=== PATIENT | female | born 1975 | race Caucasian/White ===

== ENCOUNTER 2017-07-15 17:18 | Inpatient (IN) | payer MEDICAID, OTHER ==
[2017-07-15 17:24] VITALS: O2SAT 99
--- NOTE | 2017-07-15 17:34 | C.PDOC ---
History Of Present Illness 41 year old female presents to the ER as a transfer from [facility] for psych admission for depression, suicidal ideation, and alcoholism. Denies physical complaints at this time. Time Seen by Provider: 07/15/17 17:33 Chief Complaint (Nursing): Psychiatric Evaluation History Per: Patient History/Exam Limitations: no limitations Onset/Duration Of Symptoms: Days Current Symptoms Are (Timing): Still Present Involuntary Hold By: None Recent travel outside of the [place]: No Past Medical History Reviewed: Historical Data, Nursing Documentation, Vital Signs Vital Signs: Last Vital Signs Temp 98.5 F 07/15/17 17:23 Pulse 82 07/15/17 17:23 Resp 18 07/15/17 18:33 BP 139/86 07/15/17 17:23 Pulse Ox 99 07/15/17 17:34 - Medical History PMH: Anxiety, Bipolar Disorder, Depression Family History: States: Unknown Family Hx - Social History Hx Alcohol Use: Yes Hx Substance Use: No - Immunization History Hx Tetanus Toxoid Vaccination: No Hx Influenza Vaccination: No Hx Pneumococcal Vaccination: No Review Of Systems Constitutional: Negative for: Fever, Chills Gastrointestinal: Negative for: Nausea, Vomiting, Diarrhea Psych: Positive for: Depression, Suicidal ideation Physical Exam - Physical Exam Appears: Non-toxic, No Acute Distress, Other (Obese white female) Skin: Normal Color, Warm, Dry Head: Atraumatic, Normacephalic Eye(s): bilateral: Normal Inspection Oral Mucosa: Moist Chest: Symmetrical, No Tenderness Cardiovascular: Rhythm Regular Respiratory: Normal Breath Sounds, No Rales, No Rhonchi, No Wheezing Gastrointestinal/Abdominal: Soft, No Tenderness Neurological/Psych: Oriented x3, Normal Speech ED Course And Treatment O2 Sat by Pulse Oximetry: 99 (Room air) Pulse Ox Interpretation: Normal Medical Decision Making Medical Decision Making: pre-screened by this MD for inpt psych for depression, alcohol abuse. Disposition Doctor Will See Patient In The: Hospital Counseled Patient/Family Regarding: Studies Performed, Diagnosis - Disposition Disposition: HOSPITALIZED Disposition Time: 17:34 Condition: GOOD - Clinical Impression Clinical Impression: Moderate major depression, single episode - Scribe Statement The provider has reviewed the documentation as recorded by the Scribnakul Huddleston All medical record entries made by the Scribe were at my direction and personally dictated by me. I have reviewed the chart and agree that the record accurately reflects my personal performance of the history, physical exam, medical decision making, and the department course for this patient. I have also personally directed, reviewed, and agree with the discharge instructions and disposition.
--- NOTE | 2017-07-15 18:30 | PCM.BM ---
<ShawandaDana - Last Filed: 07/15/17 18:28> Treatment Plan Problems - Problems identified on initial assessmt Depression Date Initiated: 07/15/17 Time Initiated: 18:29 Assessment reference: NA Status: Active Comment: Hx of ETOH abuse/ level 301 Treatment assets and liabiliti Patient Assests: adapts well, cooperative, cognitively intact Patient Liabilities: substance abuse - Milieu Protocol Maintain good personal hygiene: daily Encourage regular showers, daily Remind patient to perform daily oral care Conduct patient checks and document Observation sheet: Q15 minutes Maintain personal safety: every shift Educate patient to report safety concerns to staff, every shift Monitor environment for contraband/sharps Medication safety: Monitor for expected outcome, potential side effects: every shift, Assess barriers to learning: every shift, Assess readiness for medication education: every shift <Pearl Ibarra - Last Filed: 07/16/17 10:52> Family Contact Family involvement: Famliy/SO not involved - Goals for Treatment Patient goals for treatment: "I need an outpatient program." Discharge/Continuing Care - Education Needs Education Needs: Patient Medication, Patient Coping Skills - Discharge Discharge Criteria: Tolerates medication w/o severe side effects, Reduction of target symptoms Discharge to:: Home - Treatment Team Participation Discussed with Family/SO: No Was Patient/Family/SO present at Treatment Team Meeting: Yes <DenverOctavio - Last Filed: 07/16/17 10:57> - Diagnosis (1) Major depressive disorder, recurrent severe without psychotic features Status: Acute Interventions: 07/16/17 10:56 * Assess/adjust medications daily and /or as needed * See patient on an individual basis 7x/week to assess symptoms of depression * Monitor for side effects & effectiveness of medications * (2) Alcohol use disorder, severe, dependence Status: Acute Interventions: 07/16/17 10:57 * Assess 7x/week regarding severity of withdrawal * Educate regarding risks, benefits, side effects and alternatives of medications * Use Motivational Interviewing for abstinence * Use CBT for relapse prevention * Medication management for withdrawal symptoms * Encourage medication assisted treatment *
[2017-07-15] MEDS ORDERED: Aluminum Hydroxide/Magnesium Hydroxide Susp (30 mL) PO PRN (18:50)
[2017-07-16] MEDS: Multiple Vitamins Tab PO SCH (09:47)
--- NOTE | 2017-07-16 10:55 | PCM.PSYCH ---
Initial Psychiatric Evaluation - Initial Psychiatric Evaluation Type of Admission: Voluntary Legal Status: Capacity Chief Complaint (in patient's own words): I was feeling depressed and suicidal.' History of Present Illness and Precipitating Events: Patient is a 41 year old female who was transferred from [place]. She is with two children who live with their father. 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 Recently her depression and anxiety is brought on by stress at work. She feels hopelessness and worthlessness. She states she sometimes has thoughts of hurting herself but has never attempted suicide. She also reports of poor sleep and poor appetite. In 2016 she was hospitalized for a general medical issue, during this time she asked to speak with a psychiatrist about her untreated depression. Following this discharge she had regular follow up with a psychiatrist at [facility] until January when the program shut down. Following there program termination she has not seen a psychiatrist. Patient states she has a history of alcohol use. Patient relapsed during the holidays and states that time of year is a trigger for her. She stats she drinks 1 to 2 pints of vodka daily. Her last drink was yesterday. At this time she is having shakes and anxiety. She had one alcohol related seizure in 2016. Patient denies drugs or tobacco products. Plan following discharge is to enter an IOP. She denies any AVH or any paranoia. PMH:HTN Past psych hx: depression Family psych hx: denies Current Medications: Active Medications Generic Name Dose Route Start Last Admin Trade Name Freq PRN Reason Stop Dose Admin Al Hydrox/Mg Hydrox/Simethicone 30 ml 07/15/17 18:50 Maalox 30 Ml PO TID PRN Indigestion / Heartburn Bupropion HCl 75 mg 07/16/17 11:00 Wellbutrin PO DAILY SELWYN Chlordiazepoxide 25 mg 07/15/17 18:50 07/15/17 19:37 Librium PO 25 mg Q4H PRN Administration Alcohol Withdrawal Clonidine HCl 0.1 mg 07/15/17 18:50 Catapres PO Q8 PRN COWS Score More or Equal to 5 Folic Acid 1 mg 07/16/17 10:00 07/16/17 09:47 Folic Acid PO 1 mg DAILY SELWYN Administration Gabapentin 100 mg 07/16/17 10:07/16/17 09:47 Neurontin PO 100 mg TID SELWYN Administration Hydroxyzine HCl 25 mg 07/15/17 18:51 Atarax PO Q6 PRN Anxiety Loperamide HCl 2 mg 07/15/17 18:50 Imodium PO Q8 PRN Diarrhea Multivitamins 1 tab 07/16/17 10:00 07/16/17 09:47 Hexavitamin PO 1 tab DAILY SELWYN Administration Ondansetron HCl 4 mg 07/15/17 18:50 Zofran Tab PO Q8 PRN Nausea/Vomiting Pneumococcal Polyvalent Vaccine 0.5 ml 07/17/17 20:34 Pneumovax 23 Vaccine IM 07/17/17 20:35 .ONCE ONE Thiamine HCl 100 mg 07/16/17 10:00 07/16/17 09:47 Vitamin B1 Tab PO 100 mg DAILY SELWYN Administration Trazodone HCl 50 mg 07/15/17 18:50 Desyrel PO HS PRN Insomnia Past Psychiatric History - Past Psychiatric History Previous Treatment History: Inpatient Pertinent Medical Hx (Current Medical&Sleep Prob, Allergies): Allergies Allergy/AdvReac Type Severity Reaction Status Date / Time latex Allergy RASH Verified 07/15/17 17:29 Topamax 07/15/17 Wellbutrin 07/15/17 Review of Systems - Review of Systems All systems: reviewed and no additional remarkable complaints except - Neurological Neurological: Tremor - Psychiatric Psychiatric: Anxiety, Depression, Irritability, Suicidal Ideation Mental Status Examination - Personal Presentation Personal Presentation: Looks stated age - Affect Affect: Constricted, Depressed - Motor Activity Motor Activity: Calm - Reliability in Providing Information Reliability in Providing Information: Fair - Speech Speech: Organized - Mood Mood: Depressed, Anxious - Formal Thought Process Formal Thought Process: No Impairment - Obsessions/Compulsions Obsessions: No Compulsions: No - Cognitive Functions Orientation: Person, Place, Situation, Time Sensorium: Alert Attention/Concentration: Attentive Abstract Thinking: [place] Estimate of Intelligence: Below average Judgement: Imparied, as evidence by: Poor judgement, Imparied, as evidence by: Lack of insight into illness - Risk Risk: Suicidal, Withdrawal, Diminished functioning - Limitations Limitations: Living alone DSM 5 DX - DSM 5 DSM 5 Diagnosis: Major depressive disorder severe without psychotic features Alcohol use disorder severe Alcohol withdrawal - Recommended/Plan of Treatment Treatment Recommendations and Plan of Treatment: Major depressive disorder severe without psychotic features CBT Psychoeducation Supportive therapy, group therapy, individual therapy Bupropion 75 mg by mouth daily Neurontin 100 mg PO TID Trazodone 50 mg by mouth daily at bedtime Alcohol use disorder severe CBT Psychoeducation Supportive therapy, individual therapy Use [place] for abstinence Alcohol withdrawal uncomplicated CBT Psychoeducation Supportive therapy, individual therapy Librium when necessary Librium taper Folic acid/thiamine/multivitamin Seizure Disorder Continue prescribed medications (Topamax 50 mg) HTN Monitor s/s - Smoking Cessation Smoking Cessation Initiated: No
[2017-07-17 06:21] VITALS: RESP 20
[2017-07-17] MEDS: Multiple Vitamins Tab PO SCH (09:29)
--- NOTE | 2017-07-17 11:49 | PCM.PYCHPN ---
Psychiatric Progress Note - Psychiatric Progress Note Patient seen today, length of contact: 16mins Patient Chief Complaint: " I don't think I need the librium" Problems Identified/Issues Discussed: The pt is seen, chart reviewed, case discussed with staff. Patient states she feels great. She is asking to stop the librium because it makes her sleepy. Reassured the necessity of the medication for her detox. The pt is compliant with medications and reports no side-effects. Symptoms are improving but needs more time to stabilize. After care discussed, support and psychoeducation given. Medication Change: Yes Medical Record Reviewed: Yes Mental Status Examination - Cognitive Function Orientation: Person, Place, Situation, Time Memory: Intact Attention: WNL Concentration: WNL Association: WNL Fund of Knowledge: WNL - Mood Mood: Neutral - Affect Affect: Constricted - Speech Speech: Appropriate - Formal Thought Process Formal Thought Process: No Impairment - Suicidal Ideation Suicidal Ideation: No - Homicidal Ideation Homicidal Ideation: No Goal/Treatment Plan - Goal/Treatment Plan Need for Continued Stay: Discharge may exacerbated symptoms, Severe functional impairment Progress Toward Problem(s) and Goals/Treatment Plan: Major depressive disorder severe without psychotic features CBT Psychoeducation Supportive therapy, group therapy, individual therapy Bupropion 75 mg by mouth daily changed to XL 150 tomorrow Trazodone 50 mg by mouth daily at bedtime Alcohol use disorder severe CBT Psychoeducation Supportive therapy, individual therapy Use [place] for abstinence Alcohol withdrawal uncomplicated CBT Psychoeducation Supportive therapy, individual therapy Librium when necessary Librium taper Folic acid/thiamine/multivitamin Seizure Disorder Continue prescribed medications (Topamax 50 mg) HTN Monitor s/s
[2017-07-17] MEDS ORDERED: Pneumococcal 23-Valent Vaccine IM ONE (20:34)
[2017-07-18 06:30] VITALS: BP 104/71; PULSE 74; TEMP 98.3
[2017-07-18] MEDS: Multiple Vitamins Tab PO SCH (09:20)
[2017-07-18] MEDS ORDERED: buPROPion 150 mg/24 Hours XL Tab PO SCH (10:00)
--- NOTE | 2017-07-18 10:32 | PCM.PYCHDC ---
Mental Status Examination - Mental Status Examination Orientation: Person, Place, Situation, Time Memory: Intact Mood: Neutral Affect: Constricted Speech: Soft Attention: WNL Concentration: WNL Association: WNL Fund of Knowledge: WNL Formal Thought Process: No Impairment Description of patient's judgement and insight: good, fair Psychotic Thoughts and Behaviors: denies any AVH Suicidal Ideation: No Current Homicidal Ideation?: No Discharge Summary - Discharge Note Reason for Hospitalization: Patient is a 41 year old female who was transferred from [place]. She is with two children who live with their father. 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 Recently her depression and anxiety is brought on by stress at work. She feels hopelessness and worthlessness. She states she sometimes has thoughts of hurting herself but has never attempted suicide. She also reports of poor sleep and poor appetite. In 2016 she was hospitalized for a general medical issue, during this time she asked to speak with a psychiatrist about her untreated depression. Following this discharge she had regular follow up with a psychiatrist at [facility] until January when the program shut down. Following there program termination she has not seen a psychiatrist. Patient states she has a history of alcohol use. Patient relapsed during the holidays and states that time of year is a trigger for her. She stats she drinks 1 to 2 pints of vodka daily. Her last drink was yesterday. At this time she is having shakes and anxiety. She had one alcohol related seizure in 2016. Patient denies drugs or tobacco products. Plan following discharge is to enter an IOP. She denies any AVH or any paranoia. Consultations:: List each consultation separately and include: 1. Reason for request. 2. Findings. 3. Follow-up Summary of Hospital Course include:: 1. Description of specific treatment plan utilized for patients during their course of treatmen. 2. Summarize the time- course for resolution of acute symptoms and/or regressed behaviors. 3. Describe issues identified and worked on during hospitalization. 4. Describe medication utilized. 5. Describe medical problems identified and treated. 6. Reassessment of suicide risk Summary of Hospital Course: During the course of her stay, patient (pt) started progressively improving and she no longer remained anxious, depressed and suicidal. Her mood was getting better and she started attending groups and meetings and started socializing. The doses of her medications were maximized and patient denied any feelings of hopelessness, helplessness, and worthlessness, denied any problem with the sleep or appetite, denied suicidal ideation or homicidal ideation. Pt denied any auditory or visual hallucinations. Patient reported improvement in her mood and tolerated these medications very well and denied any side effects. Pt is to follow-up with private psychiatrist, on 07/30/17 at 4 p.m. Pt is also to follow-up with [facility] in [place] for IOP program. - Diagnosis (1) Major depressive disorder, recurrent severe without psychotic features Status: Acute (2) Alcohol use disorder, severe, dependence Status: Acute - Final Diagnosis (DSM 5) Condition upon Discharge: GOOD DSM 5: Major depressive disorder severe without psychotic features Alcohol use disorder severe Alcohol withdrawal uncomplicated Disposition: HOME/ ROUTINE Follow-up Treatment Plan: Education: Pt was educated and counseled about the risks and benefits of taking and not taking medications. Pt was educated and counseled about the risks of drinking and abusing drugs. Pt was educated and counseled to go to the ER or call 911 if pt develop suicidal ideation or homicidal ideation, worsening of symptoms or severe side effects of the meds. Prescriptions/Medication Reconciliation: buPROPion XL [Wellbutrin XL] 150 mg PO DAILY #30 t24 Gabapentin [Neurontin] 100 mg PO BID 14 Days cap Topiramate [Topamax] 50 mg PO DAILY #30 tab traZODone [Desyrel] 50 mg PO HS PRN #30 tab PRN Reason: Insomnia
== END 2017-07-18 11:45 | disposition home or self-care (01) | DRG 430 ==
LOC: C.ER 17:18 → C.5E 17:34
PROVIDERS: ADMIT Psychiatry & Neurology Psychiatry; ATTEND Psychiatry & Neurology Psychiatry
PROC: HZ2ZZZZ Detoxification Services for Substance Abuse Treatment (ICD-10-PCS; principal; 2017-07-15)
DX: F33.2 Major depressive disorder, recurrent severe without psychotic features (principal); G40.909 Epilepsy, unspecified, not intractable, without status epilepticus; F10.239 Alcohol dependence with withdrawal, unspecified; F41.9 Anxiety disorder, unspecified; I10 Essential (primary) hypertension

== ENCOUNTER 2017-09-23 13:01 | Inpatient (IN) | payer MEDICAID, OTHER ==
[2017-09-23 14:17] LABS: BASO % 0.6 % (0.0-2.0); EOS % 0.8 % (0.0-4.0); HEMOGLOBIN 14.3 g/dL (11.0-16.0); LYMPH # 1.6 K/uL (1.0-4.3); LYMPH % 28.4 % (20.0-40.0); MEAN CELL VOLUME 91.7 fL (81.0-99.0); MEAN CORPUSCULAR HEMOGLOBIN 32.2 pg (27.0-31.0); MEAN CORPUSCULAR HGB CONC 35.2 g/dL (33.0-37.0); MONO # 0.3 K/uL (0.0-0.8); NEUT # 3.7 K/uL (1.8-7.0); NEUT % 65.2 % (50.0-75.0); RBC 4.43 Mil/uL (3.80-5.20); WHITE BLOOD COUNT 5.7 K/uL (4.8-10.8)
[2017-09-23 14:22] LABS: SQUAMOUS EPITHIAL < 1 /hpf (0-5); URINE BILIRUBIN NEGATIVE (NEGATIVE); URINE BLOOD 1+ (NEGATIVE); URINE CLARITY Clear (Clear); URINE COLOR Colorless (YELLOW); URINE GLUCOSE (UA) NORMAL (Normal); URINE LEUKOCYTE ESTERASE NEG Leu/uL (Negative); URINE PROTEIN NEGATIVE (NEGATIVE); URINE UROBILINOGEN NORMAL mg/dL (0.2-1.0)
[2017-09-23 14:38] LABS: ALB/GLOB RATIO 1.3 (1.0-2.1); ALBUMIN 4.6 g/dL (3.5-5.0); ALT/SGPT 41 U/L (9-52); AST/SGOT 57 U/L (14-36); BLOOD UREA NITROGEN 11 mg/dL (7-17); CALCIUM 9.2 mg/dl (8.6-10.4); GFR AFRICAN-AMERICAN > 60; GFR NON-AFRICAN AMERICAN > 60; HCG,QUALITATIVE URINE NEGATIVE (NEGATIVE)
[2017-09-23 14:56] LABS: BARBITURATES, UR NEGATIVE (NEGATIVE); OPIATES, UR NEGATIVE (NEGATIVE); PHENCYCLIDINE, UR NEGATIVE (NEGATIVE)
[2017-09-23 14:57] LABS: BENZODIAZEPINES, UR POSITIVE (NEGATIVE)
--- NOTE | 2017-09-23 15:37 | C.PDOC ---
History Of Present Illness 42 year old female presents to the ED after being referred by Dr. Goff for evaluation of alcoholism and depression. Patient denies suicidal/homicidal ideation and has no other complaints at this time. Time Seen by Provider: 09/23/17 14:04 Chief Complaint (Nursing): Substance Abuse History Per: Patient History/Exam Limitations: no limitations Current Symptoms Are (Timing): Still Present Modifying Factor(s): Alcohol Associated Symptoms: Depression. denies: Suicidal Thoughts, Suicidal Plan Additional History Per: Patient Past Medical History Reviewed: Historical Data, Nursing Documentation, Vital Signs Vital Signs: Last Vital Signs Temp 97.5 F L 09/23/17 16:08 Pulse 68 09/23/17 16:08 Resp 17 09/23/17 19:34 BP 116/76 09/23/17 16:08 Pulse Ox 96 09/23/17 19:00 - Medical History PMH: Anxiety, Bipolar Disorder, Depression, HTN, Seizures Denies: Diabetes, Hepatitis, HIV, Sexually Transmitted Disease Surgical History: No Surg Hx - [facility] DETOXIFICATION SERVICES FOR SUBSTANCE ABUSE TREATMENT (07/15/17) Family History: States: Unknown Family Hx - Social History Hx Alcohol Use: Yes Hx Substance Use: Yes - Immunization History Hx Tetanus Toxoid Vaccination: No Hx Influenza Vaccination: No Hx Pneumococcal Vaccination: No Review Of Systems Psych: Positive for: Depression, Other (alcoholism ). Negative for: Suicidal ideation Physical Exam - Physical Exam Appears: Non-toxic, No Acute Distress Skin: Normal Color, Warm, Dry Head: Atraumatic, Normacephalic Eye(s): bilateral: Normal Inspection Oral Mucosa: Moist, Other (alcohol on breath ) Neck: Supple Chest: Symmetrical, No Deformity, No Tenderness Cardiovascular: Rhythm Regular, No Murmur Respiratory: Normal Breath Sounds, No Rales, No Rhonchi, No Wheezing Extremity: Normal ROM, Capillary Refill (less than 2 seconds ) Neurological/Psych: Oriented x3, Normal Speech, Normal Cognition ED Course And Treatment - Laboratory Results Result Diagrams: 09/23/17 14:10 09/23/17 14:10 Lab Interpretation: Abnormal (tox + benzo, + etoh 172 H) O2 Sat by Pulse Oximetry: 96 (on RA) Pulse Ox Interpretation: Normal Progress Note: Bloodwork and UA ordered and reviewed. Reevaluation Time: 15:36 Reassessment Condition: Improved - Physician Consult Information Outcome Of Conversation: 1530: d/w Crisis, ok to admit to psych Disposition Doctor Will See Patient In The: Office Counseled Patient/Family Regarding: Studies Performed, Diagnosis - Disposition Disposition: HOSPITALIZED Disposition Time: 15:36 Condition: GOOD - Clinical Impression Clinical Impression: Alcohol use disorder, severe, dependence, Major depressive disorder, recurrent severe without psychotic features - Scribe Statement The provider has reviewed the documentation as recorded by the Scribe (Trinity Cooley) Provider Attestation: All medical record entries made by the Scribe were at my direction and personally dictated by me. I have reviewed the chart and agree that the record accurately reflects my personal performance of the history, physical exam, medical decision making, and the department course for this patient. I have also personally directed, reviewed, and agree with the discharge instructions and disposition.
[2017-09-23] MEDS: Multiple Vitamins Tab PO SCH (17:41)
--- NOTE | 2017-09-23 18:29 | PCM.BM ---
<Coco Marcum - Last Filed: 09/23/17 18:26> Treatment Plan Problems - Problems identified on initial assessmt Depression Date Initiated: 09/23/17 Time Initiated: 18:27 Assessment reference: NA Status: Active Substance Abuse Date Initiated: 09/23/17 Time Initiated: 18:27 Assessment reference: NA Status: Active Treatment assets and liabiliti Patient Assests: adapts well, cooperative, self-reliant, ADL independent, physically healthy, negotiates basic needs, cognitively intact Patient Liabilities: substance abuse (EToh, Benzo) - Milieu Protocol Maintain good personal hygiene: daily Encourage regular showers, daily Remind patient to perform daily oral care, daily Assist patient to perform ADL's (Self) Conduct patient checks and document Observation sheet: Q15 minutes (Safety) Maintain personal safety: every shift Educate patient to report safety concerns to staff, every shift Monitor environment for contraband/sharps Medication safety: Monitor for expected outcome, potential side effects: every shift, Assess barriers to learning: every shift, Assess readiness for medication education: every shift <Octavio Goff - Last Filed: 09/24/17 11:13> - Diagnosis (1) Major depressive disorder, recurrent severe without psychotic features Status: Acute Interventions: 09/24/17 11:13 * Assess/adjust medications daily and /or as needed * See patient on an individual basis 7x/week to assess symptoms of depression * Monitor for side effects & effectiveness of medications * (2) Alcohol use disorder, severe, dependence Status: Acute Interventions: 09/24/17 11:14 * Assess 7x/week regarding severity of withdrawal * Educate regarding risks, benefits, side effects and alternatives of medications * Use Motivational Interviewing for abstinence * Use CBT for relapse prevention * Medication management for withdrawal symptoms * Encourage medication assisted treatment * <Semea Valencia - Last Filed: 09/24/17 17:53> Family Contact Family involvement: Patient does not wish Family/SO involvement Family contact: Patient declines to allow family contact at present - Goals for Treatment Patient goals for treatment: " I want return to my private psychiatrist and need individual counseling." Discharge/Continuing Care - Education Needs Education Needs: Patient Medication, Patient Diagnosis/Disease Process, Patient Coping Skills, Patient Community resources, Patient Aftercare Safety Plan - Discharge Discharge Criteria: Ability to care for self, No longer exhibiting s/s of withdrawal, Reduction of target symptoms Discharge to:: Home - Treatment Team Participation Discussed with Family/SO: No Was Patient/Family/SO present at Treatment Team Meeting: Yes
[2017-09-24] MEDS: Multiple Vitamins Tab PO SCH (10:03)
[2017-09-24] MEDS: buPROPion 150 mg/24 Hours XL Tab PO SCH (10:04)
--- NOTE | 2017-09-24 11:12 | PCM.PSYCH ---
Initial Psychiatric Evaluation - Initial Psychiatric Evaluation Type of Admission: Voluntary Legal Status: Capacity Chief Complaint (in patient's own words): I was being depressed and suicidal.' History of Present Illness and Precipitating Events: Patient is a 42 year old female was admitted because of depressed mood and suicidal ideation. The television writer is familiar with this patient. Patient was just discharged from [facility] almost 3 months ago. As per the patient soon after discharge from the hospital, she started following up with the psychiatrist and started working full-time. However as per the patient, she began drinking heavily again after being sober for two months. Yesterday she consumed almost 1 and 2 pints of alcohol became increasingly depressed and developed suicidal ideation, so she came to the hospital to get help. She reports financial stresses, and relationship issues and stress at work. She reports depressed mood, feelings of helplessness, poor sleep and poor appetite. She remained tearful during the interview. She also reported withdrawal symptoms drinking including nausea, anxiety, sweating, shakes and headaches. Patient has a history of seizure disorder for which she is prescribed Topamax. However patient reports she has been non-compliant with all her meds since she resumed drinking. Patient denies HI. She denies any auditory or visual hallucinations or any paranoia. Patient denies any other substance abuse. PMH h/o Seizure, HTN Current Medications: Active Medications Generic Name Dose Route Start Last Admin Trade Name Freq PRN Reason Stop Dose Admin Bupropion HCl 150 mg 09/24/17 10:00 09/24/17 10:04 Wellbutrin Xl PO 150 mg DAILY SELWYN Administration Chlordiazepoxide 25 mg 09/23/17 18:00 09/24/17 06:03 Librium PO 09/28/17 17:59 25 mg Q6 SELWYN Administration Taper Chlordiazepoxide 25 mg 09/23/17 16:08 09/24/17 10:03 Librium PO 25 mg Q4H PRN Administration Alcohol Withdrawal Clonidine HCl 0.1 mg 09/23/17 16:08 Catapres PO Q4H PRN Symptoms of alcohol withdrawl Folic Acid 1 mg 09/23/17 16:15 09/24/17 10:04 Folic Acid PO 1 mg DAILY SELWYN Administration Gabapentin 100 mg 09/23/17 18:00 09/24/17 10:04 Neurontin PO 100 mg BID SELWYN Administration Multivitamins 1 tab 09/23/17 16:15 09/24/17 10:03 Hexavitamin PO 1 tab DAILY SELWYN Administration Pneumococcal Polyvalent Vaccine 0.5 ml 09/26/17 10:00 Pneumovax 23 Vaccine IM 09/26/17 10:01 .ONCE ONE Thiamine HCl 100 mg 09/23/17 16:15 09/24/17 10:04 Vitamin B1 Tab PO 100 mg DAILY SELWYN Administration Topiramate 50 mg 09/24/17 10:00 09/24/17 10:11 Topamax PO 50 mg DAILY SELWYN Administration Trazodone HCl 50 mg 09/23/17 16:07 Desyrel PO HS PRN Insomnia Past Psychiatric History - Past Psychiatric History Previous Treatment History: Inpatient Pertinent Medical Hx (Current Medical&Sleep Prob, Allergies): Allergies Allergy/AdvReac Type Severity Reaction Status Date / Time latex Allergy RASH Verified 09/23/17 13:31 Topamax 07/15/17 Wellbutrin 07/15/17 Gabapentin [Neurontin] 100 mg PO BID 14 Days cap 07/18/17 Topiramate [Topamax] 50 mg PO DAILY #30 tab 07/18/17 buPROPion XL [Wellbutrin XL] 150 mg PO DAILY #30 t24 07/18/17 traZODone [Desyrel] 50 mg PO HS PRN #30 tab 07/18/17 Review of Systems - Review of Systems All systems: reviewed and no additional remarkable complaints except - Psychiatric Psychiatric: Anxiety, Irritability, Suicidal Ideation Mental Status Examination - Personal Presentation Personal Presentation: Looks stated age - Affect Affect: Constricted, Depressed - Motor Activity Motor Activity: Calm - Reliability in Providing Information Reliability in Providing Information: Fair - Speech Speech: Organized - Mood Mood: Depressed, Anxious - Formal Thought Process Formal Thought Process: No Impairment - Obsessions/Compulsions Obsessions: No Compulsions: No - Cognitive Functions Orientation: Person, Place, Situation, Time Sensorium: Alert Attention/Concentration: Attentive Abstract Thinking: [place] Estimate of Intelligence: Below average Judgement: Imparied, as evidence by: Poor judgement, Imparied, as evidence by: Lack of insight into illness - Risk Risk: Suicidal, Diminished functioning - Strength & Assets Inventory Strength & Assets Inventory: Intelligence - Limitations Limitations: Living alone DSM 5 DX - DSM 5 DSM 5 Diagnosis: Major depressive disorder recurrent severe without psychotic features Alcohol use disorder severe Alcohol withdrawal uncomplicated - Recommended/Plan of Treatment Treatment Recommendations and Plan of Treatment: Major depressive disorder recurrent severe without psychotic features CBT Psychoeducation Supportive therapy, group therapy, individual therapy Trazodone 50 mg by mouth daily at bedtime Wellbutrin 150 mg PO Daily Gabapentin 100 mg PO TID Alcohol use disorder severe CBT Psychoeducation Supportive therapy, individual therapy Use [place] for abstinence Alcohol withdrawal uncomplicated CBT Psychoeducation Supportive therapy, individual therapy Librium when necessary Start Librium taper Start folic acid/thiamine/multivitamin H/O Seizures Continue Topamax 50 mg PO dialy Monitor signs and symptoms H/O HTN Continue meds Monitor signs and symptoms - Smoking Cessation Smoking Cessation Initiated: No
[2017-09-25] MEDS: buPROPion 150 mg/24 Hours XL Tab PO SCH (10:00)
[2017-09-25] MEDS: Multiple Vitamins Tab PO SCH (10:00)
--- NOTE | 2017-09-25 21:53 | PCM.PYCHPN ---
Psychiatric Progress Note - Psychiatric Progress Note Patient seen today, length of contact: 15 min Patient Chief Complaint: I was still feeling being depressed.' Problems Identified/Issues Discussed: Patient seen and evaluated, chart reviewed and discussed with the nurse. She still reports depressed mood and feelings of hopelessness and helplessness. Patient remained isolated, confined and withdrawn. She reports withdrawal symptoms including nausea, headaches, cramps and sweating. Patient is compliant with medications and denies any side effects. Symptoms are improving but need more time to stabilize. Support and psychoeducation given. Medication Change: Yes (librium taper) Medical Record Reviewed: Yes Mental Status Examination - Cognitive Function Orientation: Person, Place, Situation, Time Memory: Intact Attention: WNL Concentration: Poor Association: WNL Fund of Knowledge: Poor - Mood Mood: Depressed, Anxious - Affect Affect: Constricted, Depressed - Speech Speech: Soft - Formal Thought Process Formal Thought Process: No Impairment - Suicidal Ideation Suicidal Ideation: No - Homicidal Ideation Homicidal Ideation: No Goal/Treatment Plan - Goal/Treatment Plan Need for Continued Stay: Severe depression anxiety, Severe functional impairment Progress Toward Problem(s) and Goals/Treatment Plan: Major depressive disorder recurrent severe without psychotic features CBT Psychoeducation Supportive therapy, group therapy, individual therapy Trazodone 50 mg by mouth daily at bedtime Wellbutrin 150 mg PO Daily Gabapentin 100 mg PO TID Alcohol use disorder severe CBT Psychoeducation Supportive therapy, individual therapy Use [place] for abstinence Alcohol withdrawal uncomplicated CBT Psychoeducation Supportive therapy, individual therapy Librium when necessary Start Librium taper Start folic acid/thiamine/multivitamin H/O Seizures Continue Topamax 50 mg PO dialy Monitor signs and symptoms H/O HTN Continue meds Monitor signs and symptoms - Smoking Cessation Smoking Cessation Initiated: No
[2017-09-26] MEDS ORDERED: Pneumococcal 23-Valent Vaccine IM ONE (10:00)
[2017-09-26] MEDS: buPROPion 150 mg/24 Hours XL Tab PO SCH (10:04)
[2017-09-26] MEDS: Multiple Vitamins Tab PO SCH (10:04)
--- NOTE | 2017-09-26 23:33 | PCM.PYCHPN ---
Psychiatric Progress Note - Psychiatric Progress Note Patient seen today, length of contact: 15 min Patient Chief Complaint: I was still feeling depressed.' Problems Identified/Issues Discussed: Patient seen and evaluated, chart reviewed and discussed with the nurse. She still reports depressed mood and feelings of hopelessness. Patient remained isolated, confined and withdrawn. She reports withdrawal symptoms including nausea, headaches, cramps and sweating. Patient is compliant with medications and denies any side effects. Symptoms are improving but need more time to stabilize. Support and psychoeducation given. Medication Change: Yes (librium taper, increase neurontin) Medical Record Reviewed: Yes Mental Status Examination - Cognitive Function Orientation: Person, Place, Situation, Time Memory: Intact Attention: WNL Concentration: Poor Association: WNL Fund of Knowledge: Poor - Mood Mood: Depressed, Anxious - Affect Affect: Constricted, Depressed - Speech Speech: Soft - Formal Thought Process Formal Thought Process: No Impairment - Suicidal Ideation Suicidal Ideation: No - Homicidal Ideation Homicidal Ideation: No Goal/Treatment Plan - Goal/Treatment Plan Need for Continued Stay: Severe depression anxiety, Severe functional impairment Progress Toward Problem(s) and Goals/Treatment Plan: Major depressive disorder recurrent severe without psychotic features CBT Psychoeducation Supportive therapy, group therapy, individual therapy Trazodone 50 mg by mouth daily at bedtime Wellbutrin 150 mg PO Daily Gabapentin 300 mg PO TID Alcohol use disorder severe CBT Psychoeducation Supportive therapy, individual therapy Use [place] for abstinence Alcohol withdrawal uncomplicated CBT Psychoeducation Supportive therapy, individual therapy Librium when necessary Librium taper Folic acid/thiamine/multivitamin H/O Seizures Continue Topamax 50 mg PO dialy Monitor signs and symptoms H/O HTN Continue meds Monitor signs and symptoms - Smoking Cessation Smoking Cessation Initiated: No
[2017-09-27 06:25] VITALS: O2SAT 100
[2017-09-27] MEDS: buPROPion 150 mg/24 Hours XL Tab PO SCH (09:05)
[2017-09-27] MEDS: Multiple Vitamins Tab PO SCH (09:05)
--- NOTE | 2017-09-27 16:34 | PCM.PYCHPN ---
Psychiatric Progress Note - Psychiatric Progress Note Patient seen today, length of contact: 15 min Patient Chief Complaint: I'm feeling better. Problems Identified/Issues Discussed: Patient seen, chart reviewed, case discussed with the staff. Issues related to illness and treatment were discussed with the patient and staff. Reported compliant with treatment with no adverse affects. Tolerating treatment very well. Patient reported feeling better. Patient is improving with treatment but needs more time. Aftercare discussed with the patient. At the time of evaluation, patient was awake alert oriented 3, no delusions, no auditory visual hallucinations, no suicidal ideations or homicidal ideations. Medical Problems: Hypertension Seiter disorder Diagnostic Results: Reviewed DSM 5 Symptoms Update: Improving with treatment Medication Change: No Medical Record Reviewed: Yes Mental Status Examination - Cognitive Function Orientation: Person, Place, Situation, Time Memory: Intact Attention: WNL Concentration: WNL Association: WNL Fund of Knowledge: WN Decription of patient's judgement and insights: Fair - Mood Mood: Depressed - Affect Affect: Depressed - Speech Speech: Soft - Formal Thought Process Formal Thought Process: No Impairment Psychotic Thoughts and Behaviors: None - Suicidal Ideation Suicidal Ideation: No - Homicidal Ideation Homicidal Ideation: No Goal/Treatment Plan - Goal/Treatment Plan Need for Continued Stay: Remain at risks for inpatient hospitalization, Discharge may exacerbated symptoms, Severe functional impairment Progress Toward Problem(s) and Goals/Treatment Plan: Patient education Supportive therapy Continue treatment as before Patient will go to [facility] for follow-up care after discharge from the hospital. Estimated Date of D/C: 09/30/17 - Smoking Cessation Smoking Cessation Initiated: No
[2017-09-28] MEDS: buPROPion 150 mg/24 Hours XL Tab PO SCH (09:24)
[2017-09-28] MEDS: Multiple Vitamins Tab PO SCH (09:24)
--- NOTE | 2017-09-28 13:34 | PCM.PYCHPN ---
Psychiatric Progress Note - Psychiatric Progress Note Patient seen today, length of contact: 15 min Patient Chief Complaint: I'm feeling better. Problems Identified/Issues Discussed: Patient seen, chart reviewed, case discussed with the staff. Issues related to illness and treatment were discussed with the patient and staff. Reported compliant with treatment with no adverse affects. Tolerating treatment very well. Patient reported feeling better. Comment cooperative and could try contact. Patient is improving with treatment but needs more time. Aftercare discussed with the patient. At the time of evaluation, patient was awake alert oriented 3, no delusions, no auditory visual hallucinations, no suicidal ideations or homicidal ideations. Medical Problems: Hypertension Seizer disorder Diagnostic Results: Reviewed DSM 5 Symptoms Update: Improving with treatment. Medication Change: No Medical Record Reviewed: Yes Mental Status Examination - Cognitive Function Orientation: Person, Place, Situation, Time Memory: Intact Attention: WNL Concentration: WNL Association: WNL Fund of Knowledge: [facility] Decription of patient's judgement and insights: Fair - Mood Mood: Depressed (Much less than before) - Affect Affect: Depressed - Speech Speech: Soft - Formal Thought Process Formal Thought Process: No Impairment Psychotic Thoughts and Behaviors: None - Suicidal Ideation Suicidal Ideation: No - Homicidal Ideation Homicidal Ideation: No Goal/Treatment Plan - Goal/Treatment Plan Need for Continued Stay: Remain at risks for inpatient hospitalization, Discharge may exacerbated symptoms, Severe functional impairment Progress Toward Problem(s) and Goals/Treatment Plan: Patient education Supportive therapy Continue treatment as before Patient will go to [facility] for follow-up care after discharge from the hospital. Estimated Date of D/C: 09/30/17 - Smoking Cessation Smoking Cessation Initiated: No
[2017-09-29 05:54] VITALS: RESP 18
[2017-09-29] MEDS: Multiple Vitamins Tab PO SCH (09:55)
[2017-09-29] MEDS: buPROPion 150 mg/24 Hours XL Tab PO SCH (09:55)
--- NOTE | 2017-09-29 13:27 | PCM.PYCHPN ---
Psychiatric Progress Note - Psychiatric Progress Note Patient seen today, length of contact: 15 min Patient Chief Complaint: I was still feeling depressed.' Problems Identified/Issues Discussed: Patient seen and evaluated, chart reviewed and discussed with the nurse. She still reports depressed mood and feelings of hopelessness. Patient remained isolated, confined and withdrawn. She reports withdrawal symptoms including nausea, headaches, cramps and sweating. Patient is compliant with medications and denies any side effects. Symptoms are improving but need more time to stabilize. Support and psychoeducation given. Medication Change: No Medical Record Reviewed: Yes Mental Status Examination - Cognitive Function Orientation: Person, Place, Situation, Time Memory: Intact Attention: WNL Concentration: WNL Association: WNL Fund of Knowledge: WNL - Mood Mood: Depressed (Much less than before) - Affect Affect: Depressed - Speech Speech: Soft - Formal Thought Process Formal Thought Process: No Impairment - Suicidal Ideation Suicidal Ideation: No - Homicidal Ideation Homicidal Ideation: No Goal/Treatment Plan - Goal/Treatment Plan Need for Continued Stay: Remain at risks for inpatient hospitalization, Discharge may exacerbated symptoms, Severe functional impairment Progress Toward Problem(s) and Goals/Treatment Plan: Major depressive disorder recurrent severe without psychotic features CBT Psychoeducation Supportive therapy, group therapy, individual therapy Trazodone 50 mg by mouth daily at bedtime Wellbutrin 150 mg PO Daily Gabapentin 300 mg PO TID Alcohol use disorder severe CBT Psychoeducation Supportive therapy, individual therapy Use [place] for abstinence Alcohol withdrawal uncomplicated CBT Psychoeducation Supportive therapy, individual therapy Librium when necessary Librium taper Folic acid/thiamine/multivitamin H/O Seizures Continue Topamax 50 mg PO dialy Monitor signs and symptoms H/O HTN Continue meds Monitor signs and symptoms Estimated Date of D/C: 09/30/17
[2017-09-30 06:18] VITALS: BP 104/62; PULSE 69; TEMP 97.4
[2017-09-30] MEDS: buPROPion 150 mg/24 Hours XL Tab PO SCH (10:13)
[2017-09-30] MEDS: Multiple Vitamins Tab PO SCH (10:13)
--- NOTE | 2017-09-30 11:10 | PCM.PYCHDC ---
Mental Status Examination - Mental Status Examination Orientation: Person, Place, Situation, Time Memory: Intact Mood: Neutral Affect: Constricted Speech: Soft Attention: WNL Concentration: WNL Association: WNL Fund of Knowledge: WNL Formal Thought Process: No Impairment Description of patient's judgement and insight: good, fair Psychotic Thoughts and Behaviors: denies any AVH Suicidal Ideation: No Current Homicidal Ideation?: No Discharge Summary - Discharge Note Reason for Hospitalization: Patient is a 42 year old female was admitted because of depressed mood and suicidal ideation. The tag writer is familiar with this patient. Patient was just discharged from [facility] almost 3 months ago. As per the patient soon after discharge from the hospital, she started following up with the psychiatrist and started working full-time. However as per the patient, she began drinking heavily again after being sober for two months. Yesterday she consumed almost 1 and 2 pints of alcohol became increasingly depressed and developed suicidal ideation, so she came to the hospital to get help. She reports financial stresses, and relationship issues and stress at work. She reports depressed mood, feelings of helplessness, poor sleep and poor appetite. She remained tearful during the interview. She also reported withdrawal symptoms drinking including nausea, anxiety, sweating, shakes and headaches. Patient has a history of seizure disorder for which she is prescribed Topamax. However patient reports she has been non-compliant with all her meds since she resumed drinking. Patient denies HI. She denies any auditory or visual hallucinations or any paranoia. Patient denies any other substance abuse. Consultations:: List each consultation separately and include: 1. Reason for request. 2. Findings. 3. Follow-up Summary of Hospital Course include:: 1. Description of specific treatment plan utilized for patients during their course of treatmen. 2. Summarize the time- course for resolution of acute symptoms and/or regressed behaviors. 3. Describe issues identified and worked on during hospitalization. 4. Describe medication utilized. 5. Describe medical problems identified and treated. 6. Reassessment of suicide risk Summary of Hospital Course: Patient is a 42 year old female was admitted because of depressed mood and suicidal ideation. The tag writer is familiar with this patient. Patient was just discharged from [facility] almost 3 months ago. As per the patient soon after discharge from the hospital, she started following up with the psychiatrist and started working full-time. However as per the patient, she began drinking heavily again after being sober for two months. Yesterday she consumed almost 1 and 2 pints of alcohol became increasingly depressed and developed suicidal ideation, so she came to the hospital to get help. She reports financial stresses, and relationship issues and stress at work. She reports depressed mood, feelings of helplessness, poor sleep and poor appetite. She remained tearful during the interview. She also reported withdrawal symptoms drinking including nausea, anxiety, sweating, shakes and headaches. Patient has a history of seizure disorder for which she is prescribed Topamax. However patient reports she has been non-compliant with all her meds since she resumed drinking. Patient denies HI. She denies any auditory or visual hallucinations or any paranoia. Patient denies any other substance abuse. PMH h/o Seizure, HTN - Diagnosis (1) Major depressive disorder, recurrent severe without psychotic features Current Visit: Yes Status: Acute (2) Alcohol use disorder, severe, dependence Current Visit: Yes Status: Acute - Final Diagnosis (DSM 5) Condition upon Discharge: GOOD Disposition: HOME/ ROUTINE Follow-up Treatment Plan: Major depressive disorder recurrent severe without psychotic features CBT Psychoeducation Supportive therapy, group therapy, individual therapy Trazodone 50 mg by mouth daily at bedtime Wellbutrin 150 mg PO Daily Gabapentin 300 mg PO TID Alcohol use disorder severe CBT Psychoeducation Supportive therapy, individual therapy Use [place] for abstinence Alcohol withdrawal uncomplicated CBT Psychoeducation Supportive therapy, individual therapy Librium when necessary Librium taper Folic acid/thiamine/multivitamin H/O Seizures Continue Topamax 50 mg PO dialy Monitor signs and symptoms H/O HTN Continue meds Monitor signs and symptoms Prescriptions/Medication Reconciliation: buPROPion XL [Wellbutrin XL] 150 mg PO DAILY #30 t24 Folic Acid 1 mg PO DAILY #30 tab Gabapentin [Neurontin] 300 mg PO TID #90 cap Thiamine [Vitamin B1 Tab] 100 mg PO DAILY #30 tab Topiramate [Topamax] 50 mg PO DAILY #30 tab traZODone [Desyrel] 50 mg PO HS PRN #30 tab PRN Reason: Insomnia
== END 2017-09-30 12:10 | disposition home or self-care (01) | DRG 430 ==
LOC: C.ER 13:01 → C.5E 15:37
PROVIDERS: ADMIT Psychiatry & Neurology Psychiatry; ATTEND Psychiatry & Neurology Psychiatry
PROC: HZ2ZZZZ Detoxification Services for Substance Abuse Treatment (ICD-10-PCS; principal; 2017-09-23)
DX: F33.2 Major depressive disorder, recurrent severe without psychotic features (principal); F10.230 Alcohol dependence with withdrawal, uncomplicated; F31.9 Bipolar disorder, unspecified; F41.9 Anxiety disorder, unspecified; G40.909 Epilepsy, unspecified, not intractable, without status epilepticus; I10 Essential (primary) hypertension; Z91.14 Patient's other noncompliance with medication regimen; F10.220 Alcohol dependence with intoxication, uncomplicated; Y90.6 Blood alcohol level of 120-199 mg/100 ml; F19.10 Other psychoactive substance abuse, uncomplicated

== ENCOUNTER 2018-08-08 16:55 | Inpatient (IN) | payer MEDICAID ==
--- NOTE | 2018-08-08 18:23 | C.PDOC ---
History Of Present Illness 43 y/o female pt with hx of depression presents to the ER c/o suicidal ideation. Pt has attempted suicide in the past, no current attempts. Pt notes that her depression has been worse in the past two weeks. Pt is also a chronic drinker, admits drinking 1 pint of alcohol today. Pt denies HI, hallucination, drug use, or any other complaint. Time Seen by Provider: 08/08/18 17:37 Chief Complaint (Nursing): Psychiatric Evaluation History Per: Patient History/Exam Limitations: no limitations Onset/Duration Of Symptoms: Days Current Symptoms Are (Timing): Still Present Modifying Factor(s): Alcohol Associated Symptoms: Depression, Suicidal Thoughts Past Medical History Reviewed: Historical Data, Nursing Documentation, Vital Signs Vital Signs: Last Vital Signs Temp 98.4 F 08/08/18 17:09 Pulse 92 H 08/08/18 17:09 Resp 18 08/08/18 17:09 BP 124/86 08/08/18 17:09 Pulse Ox 98 08/08/18 17:09 - Medical History PMH: Anxiety, Bipolar Disorder, Depression, HTN, Seizures - [employer] Procedures DETOXIFICATION SERVICES FOR SUBSTANCE ABUSE TREATMENT (09/23/17) Family History: States: Unknown Family Hx - Social History Hx Alcohol Use: Yes Hx Substance Use: Yes - Immunization History Hx Tetanus Toxoid Vaccination: No Hx Influenza Vaccination: No Hx Pneumococcal Vaccination: No Review Of Systems Constitutional: Negative for: Other (other drugs) Cardiovascular: Negative for: Chest Pain Respiratory: Negative for: Cough Gastrointestinal: Negative for: Nausea, Vomiting Genitourinary: Negative for: Dysuria Musculoskeletal: Negative for: Neck Pain Skin: Negative for: Rash Neurological: Negative for: Weakness, Numbness Psych: Positive for: Depression, Suicidal ideation. Negative for: Other (HI; hallucination) Physical Exam - Physical Exam Appears: Non-toxic, No Acute Distress, Other (depressed affect ) Skin: Warm, Dry Head: Normacephalic Eye(s): bilateral: Normal Inspection Oral Mucosa: Moist Throat: Normal Neck: Normal ROM, Supple Chest: Symmetrical, No Deformity Cardiovascular: Rhythm Regular Respiratory: Normal Breath Sounds Gastrointestinal/Abdominal: Soft, No Tenderness Neurological/Psych: Oriented x3, Normal Speech ED Course And Treatment - Laboratory Results Result Diagrams: 08/08/18 19:07 08/08/18 19:07 O2 Sat by Pulse Oximetry: 98 (RA) Pulse Ox Interpretation: Normal Medical Decision Making Medical Decision Making: Plans: -- Crisis consultation Patient medically cleared, evaluated by crisis, and recommended for admission to Dr. Goff. Disposition - Disposition Disposition: HOSPITALIZED Disposition Time: 21:14 Condition: GOOD - Clinical Impression Clinical Impression: Alcohol abuse, Suicidal ideation, Major depressive disorder, recurrent severe without psychotic features - Scribe Statement The provider has reviewed the documentation as recorded by the Scribe [place] Do Provider Attestation: All medical record entries made by the Scribe were at my direction and personally dictated by me. I have reviewed the chart and agree that the record accurately reflects my personal performance of the history, physical exam, medical decision making, and the department course for this patient. I have also personally directed, reviewed, and agree with the discharge instructions and disposition.
[2018-08-08 19:11] LABS: BASO % 0.5 % (0.0-2.0); EOS # 0.1 K/uL (0.0-0.7); EOS % 1.1 % (0.0-4.0); HEMOGLOBIN 15.8 g/dL (11.0-16.0); LYMPH # 3.1 K/uL (1.0-4.3); MEAN CORPUSCULAR HEMOGLOBIN 32.6 pg (27.0-31.0); MEAN PLATELET VOLUME 7.1 fL (7.2-11.7); MONO # 0.3 K/uL (0.0-0.8); MONO % 4.6 % (0.0-10.0); NEUT % 45.8 % (50.0-75.0); NRBC % 0.2 % (0.0-2.0); RBC 4.85 Mil/uL (3.80-5.20); RED CELL DISTRIBUTION WIDTH 13.4 % (11.5-14.5); WHITE BLOOD COUNT 6.5 K/uL (4.8-10.8)
[2018-08-08 19:16] LABS: MEAN CELL VOLUME 96.1 fL (81.0-99.0)
[2018-08-08 19:17] LABS: SQUAMOUS EPITHIAL 3 /hpf (0-5); URINE BILIRUBIN NEGATIVE (NEGATIVE); URINE BLOOD 1+ (NEGATIVE); URINE CLARITY Hazy (Clear); URINE COLOR Yellow (YELLOW); URINE GLUCOSE (UA) NORMAL (Normal); URINE LEUKOCYTE ESTERASE NEG Leu/uL (Negative); URINE PROTEIN NEGATIVE (NEGATIVE)
[2018-08-08 19:24] LABS: ALB/GLOB RATIO 1.4 (1.0-2.1); ALBUMIN 4.9 g/dL (3.5-5.0); ALT/SGPT 24 U/L (9-52); AST/SGOT 31 U/L (14-36); BLOOD UREA NITROGEN 14 mg/dL (7-17); CALCIUM 9.1 mg/dl (8.6-10.4); GFR NON-AFRICAN AMERICAN > 60
[2018-08-08 19:29] LABS: BARBITURATES, UR NEGATIVE (NEGATIVE); BENZODIAZEPINES, UR NEGATIVE (NEGATIVE); OPIATES, UR NEGATIVE (NEGATIVE); PHENCYCLIDINE, UR NEGATIVE (NEGATIVE)
--- NOTE | 2018-08-09 00:15 | PCM.BM ---
<Ame Whitten - Last Filed: 08/09/18 00:13> Treatment Plan Problems - Problems identified on initial assessmt Defective coping skill Date Initiated: 08/08/18 Time Initiated: 00:13 Date resolved: 08/08/18 Assessment reference: NA Status: Active Thought Alteration Date Initiated: 08/08/18 Time Initiated: 10:12 Assessment reference: NA Status: Active Treatment assets and liabiliti Patient Assests: adapts well, cooperative, insightful, motivated, self-reliant, ADL independent, physically healthy, negotiates basic needs, cognitively intact Patient Liabilities: other (alcohol abuse) - Milieu Protocol Maintain good personal hygiene: daily Encourage regular showers, daily Remind patient to perform daily oral care, daily Assist patient to perform ADL's Conduct patient checks and document Observation sheet: Q15 minutes Maintain personal safety: every shift Educate patient to report safety concerns to staff, every shift Monitor environment for contraband/sharps Medication safety: Monitor for expected outcome, potential side effects: every shift, Assess barriers to learning: every shift, Assess readiness for medication education: every shift <Pearl Ibarra - Last Filed: 08/10/18 11:39> Family Contact Family involvement: Famliy/SO not involved - Goals for Treatment Patient goals for treatment: "I need an outpatient program." Discharge/Continuing Care - Education Needs Education Needs: Patient Medication, Patient Coping Skills - Discharge Discharge Criteria: Tolerates medication w/o severe side effects, Reduction of target symptoms Discharge to:: Home - Treatment Team Participation Discussed with Family/SO: No Was Patient/Family/SO present at Treatment Team Meeting: Yes <Octavio Goff - Last Filed: 08/14/18 11:20> - Diagnosis (1) Bipolar disease, chronic Status: Acute Interventions: 08/14/18 11:20 * Assess/adjust medications daily and /or as needed * See patient on an individual basis 7x/week to assess level of manic behaviors and stability * Discuss risks, benefits, side effects and alternatives of medications * (2) Alcohol use disorder, severe, dependence Status: Acute Interventions: 08/14/18 11:20 * Assess 7x/week regarding severity of withdrawal * Educate regarding risks, benefits, side effects and alternatives of medications * Use Motivational Interviewing for abstinence * Use CBT for relapse prevention * Medication management for withdrawal symptoms * Encourage medication assisted treatment *
[2018-08-09 06:39] VITALS: RESP 20
--- NOTE | 2018-08-09 10:04 | PCM.PSYCH ---
Initial Psychiatric Evaluation - Initial Psychiatric Evaluation Type of Admission: Voluntary Legal Status: Capacity Chief Complaint (in patient's own words): I relapsed on drinking and yesterday I became increasingly depressed and suicidal.' History of Present Illness and Precipitating Events: Patient is a 41 years old female who over the hospital with depressed mood and suicidal ideation. Patient has a history of few inpatient psychiatric hospitalizations at . She was last discharged from more than a year ago. As per the patient she was following up with a psychiatrist and was taking medications, when she relapsed on drinking. As per the patient she stopped taking her medications and started drinking on a daily basis. She reports few stressors including her ex- who has a custody of the children. She also reports her job is hectic as well. She reports that she has been drinking more than 1 pint on a daily basis. Yesterday she consumed almost 1 pint of liquor, when she became increasingly depressed and developed suicidal ideation and so she came to the hospital. She reports depressed mood, feelings of hopelessness and helplessness. She also reports at times racing thoughts, irritability and agitation. She reports withdrawal symptoms from the drinking including shakes, anxiety, sweating, headaches, irritability and agitation. She denies any history of DTs and se izures in the past. She denies any other substance abuse. Past medical history Hypertension Current Medications: Active Medications Generic Name Dose Route Start Last Admin Trade Name Freq PRN Reason Stop Dose Admin Influenza Virus Vaccine 60 mcg 08/10/18 10:01 Flucelvax Quad [id number] Syr IM 08/10/18 10:02 .ONCE ONE Pneumococcal Polyvalent Vaccine 0.5 ml 08/10/18 10:00 Pneumovax 23 Vaccine IM 08/10/18 10:01 .ONCE ONE Past Psychiatric History - Past Psychiatric History Previous Treatment History: Inpatient Pertinent Medical Hx (Current Medical&Sleep Prob, Allergies): Allergies Allergy/AdvReac Type Severity Reaction Status Date / Time latex Allergy RASH Verified 09/23/17 13:31 Topamax 07/15/17 Wellbutrin 07/15/17 Gabapentin [Neurontin] 100 mg PO BID 14 Days cap 07/18/17 Folic Acid 1 mg PO DAILY #30 tab 09/30/17 Gabapentin [Neurontin] 300 mg PO TID #90 cap 09/30/17 Thiamine [Vitamin B1 Tab] 100 mg PO DAILY #30 tab 09/30/17 Topiramate [Topamax] 50 mg PO DAILY #30 tab 09/30/17 buPROPion XL [Wellbutrin XL] 150 mg PO DAILY #30 t24 09/30/17 traZODone [Desyrel] 50 mg PO HS PRN #30 tab 09/30/17 Review of Systems - Review of Systems All systems: reviewed and no additional remarkable complaints except - Psychiatric Psychiatric: Anxiety, Hopelessness, Irritability, Mood Swings, Suicidal Ideation Mental Status Examination - Personal Presentation Personal Presentation: Looks stated age - Affect Affect: Constricted, Depressed - Motor Activity Motor Activity: Psychomotor Retardation - Reliability in Providing Information Reliability in Providing Information: Fair - Speech Speech: Organized - Mood Mood: Depressed, Anxious - Formal Thought Process Formal Thought Process: No Impairment - Obsessions/Compulsions Obsessions: No Compulsions: No - Cognitive Functions Orientation: Person, Place, Situation, Time Sensorium: Alert Attention/Concentration: Attentive Abstract Thinking: [place] Estimate of Intelligence: Below average Judgement: Imparied, as evidence by: Poor judgement, Imparied, as evidence by: Lack of insight into illness - Risk Risk: Suicidal, Withdrawal, Diminished functioning - Limitations Limitations: Living alone DSM 5 DX - DSM 5 DSM 5 Diagnosis: Bipolar disorder depressed severe without psychotic features Alcohol use disorder severe Alcohol withdrawal - Recommended/Plan of Treatment Treatment Recommendations and Plan of Treatment: Bipolar disorder depressed severe without psychotic features Alcohol use disorder severe Alcohol withdrawal CBT Supportive therapy Psychoeducation Librium taper Neurontin for augmentation Trazodone for insomnia Hydroxyzine for anxiety Wellbutrin for depression - Smoking Cessation Smoking Cessation Initiated: No
[2018-08-09] MEDS ORDERED: Aluminum Hydroxide/Magnesium Hydroxide Susp (30 mL) PO PRN (10:05)
[2018-08-09] MEDS: buPROPion 150 mg/24 Hours XL Tab PO SCH (10:51)
[2018-08-09] MEDS: Multiple Vitamins Tab PO SCH (10:51)
[2018-08-10] MEDS: buPROPion 150 mg/24 Hours XL Tab PO SCH (09:44)
[2018-08-10] MEDS: Multiple Vitamins Tab PO SCH (09:45)
[2018-08-10] MEDS ORDERED: Pneumococcal 23-Valent Vaccine IM ONE (10:00)
[2018-08-10] MEDS ORDERED: Influenza Vaccine 60 mcg/0.5 mL SYR (4YR UP) IM ONE (10:01)
--- NOTE | 2018-08-10 13:01 | PCM.PYCHPN ---
Psychiatric Progress Note - Psychiatric Progress Note Patient seen today, length of contact: 16 min Patient Chief Complaint: "Anxious, too much" Problems Identified/Issues Discussed: The pt is seen, chart reviewed, case is discussed with staff. Team also saw her. The pt is compliant with medications and reports no side-effects. Symptoms are improving but needs more time to stabilize and to avoid relapse. Pt attends groups and activities. Support given, psycho-education provided. After care discussed. Of note, she reports typical bipolar sxs (alonso in the past) - agreed to add seroquel XR to evening, dose will be increased Medication Change: Yes Medical Record Reviewed: Yes Mental Status Examination - Cognitive Function Orientation: Person, Place, Situation, Time Memory: Intact Attention: WNL Concentration: Poor Association: WNL Fund of Knowledge: WNL - Mood Mood: Depressed, Anxious - Affect Affect: Constricted, Depressed - Speech Speech: Appropriate - Formal Thought Process Formal Thought Process: No Impairment - Suicidal Ideation Suicidal Ideation: No - Homicidal Ideation Homicidal Ideation: No Goal/Treatment Plan - Goal/Treatment Plan Need for Continued Stay: Severe depression anxiety, Discharge may exacerbated symptoms, Severe functional impairment Progress Toward Problem(s) and Goals/Treatment Plan: Continue medications Support and psychoeducation daily Attend groups and activities daily Individual therapy After care planning by SHERRIE and the team
[2018-08-10] MEDS: QUEtiapine 50 mg XR Tab PO SCH (22:05)
[2018-08-11] MEDS: Multiple Vitamins Tab PO SCH (09:47)
[2018-08-11] MEDS: buPROPion 150 mg/24 Hours XL Tab PO SCH (09:48)
--- NOTE | 2018-08-11 10:17 | PCM.PYCHPN ---
Psychiatric Progress Note - Psychiatric Progress Note Patient seen today, length of contact: 16 min Patient Chief Complaint: I am feeling depressed Problems Identified/Issues Discussed: Patient was seen and evaluated, chart reviewed and discussed with the staff. Patient still reports depressed mood and at times feelings of hopelessness and helplessness. She also reports at times irritability and agitation and racing thoughts. She reports some improvement in the withdrawal symptoms but still reports shakes, anxiety, headaches and sweating. She is taking medication but denies any side effects. Symptoms are improving gradually but she needs to stay longer for further stabilization. Supportive therapy was given. Medication Change: Yes Medical Record Reviewed: Yes Mental Status Examination - Cognitive Function Orientation: Person, Place, Situation, Time Memory: Intact Attention: WNL Concentration: Poor Association: WNL Fund of Knowledge: WNL - Mood Mood: Depressed, Anxious - Affect Affect: Constricted, Depressed - Speech Speech: Appropriate - Formal Thought Process Formal Thought Process: No Impairment - Suicidal Ideation Suicidal Ideation: No - Homicidal Ideation Homicidal Ideation: No Goal/Treatment Plan - Goal/Treatment Plan Need for Continued Stay: Severe depression anxiety, Discharge may exacerbated symptoms, Severe functional impairment Progress Toward Problem(s) and Goals/Treatment Plan: Bipolar disorder depressed severe without psychotic features Alcohol use disorder severe Alcohol withdrawal CBT Supportive therapy Psychoeducation Librium taper Neurontin for augmentation Trazodone for insomnia Hydroxyzine for anxiety Wellbutrin for depression
[2018-08-11] MEDS: QUEtiapine 50 mg XR Tab PO SCH (21:22)
[2018-08-12] MEDS: Multiple Vitamins Tab PO SCH (09:47)
[2018-08-12] MEDS: buPROPion 150 mg/24 Hours XL Tab PO SCH (09:48)
--- NOTE | 2018-08-12 10:13 | PCM.PYCHPN ---
Psychiatric Progress Note - Psychiatric Progress Note Patient seen today, length of contact: 16 min Patient Chief Complaint: I am feeling depressed Problems Identified/Issues Discussed: Patient was seen and evaluated, chart reviewed and discussed with the staff. Patient reports some improvement in her mood and some improvement in the feelings of hopelessness and helplessness. She also reports some improvement in her irritability and agitation and racing thoughts. She reports some improvement in the withdrawal symptoms but still reports shakes, anxiety, headaches and sweating. She is taking medication but denies any side effects. Symptoms are improving gradually but she needs to stay longer for further stabilization. Supportive therapy was given. Medication Change: Yes Medical Record Reviewed: Yes Mental Status Examination - Cognitive Function Orientation: Person, Place, Situation, Time Memory: Intact Attention: WNL Concentration: Poor Association: WNL Fund of Knowledge: WNL - Mood Mood: Depressed, Anxious - Affect Affect: Constricted, Depressed - Speech Speech: Appropriate - Formal Thought Process Formal Thought Process: No Impairment - Suicidal Ideation Suicidal Ideation: No - Homicidal Ideation Homicidal Ideation: No Goal/Treatment Plan - Goal/Treatment Plan Need for Continued Stay: Severe depression anxiety, Discharge may exacerbated symptoms, Severe functional impairment Progress Toward Problem(s) and Goals/Treatment Plan: Bipolar disorder depressed severe without psychotic features Alcohol use disorder severe Alcohol withdrawal CBT Supportive therapy Psychoeducation Librium taper Neurontin for augmentation Trazodone for insomnia Hydroxyzine for anxiety Wellbutrin for depression
[2018-08-12] MEDS: QUEtiapine 50 mg XR Tab PO SCH (22:49)
[2018-08-13 06:20] VITALS: O2SAT 97
[2018-08-13] MEDS: buPROPion 150 mg/24 Hours XL Tab PO SCH (10:41)
[2018-08-13] MEDS: Multiple Vitamins Tab PO SCH (10:41)
--- NOTE | 2018-08-13 11:22 | PCM.PYCHPN ---
Psychiatric Progress Note - Psychiatric Progress Note Patient seen today, length of contact: 16 min Patient Chief Complaint: I am feeling better Problems Identified/Issues Discussed: Patient was seen and evaluated, chart reviewed and discussed with the staff. Patient reports some improvement in her mood and reports some improvement in the withdrawal symptoms. She is taking medication but denies any side effects. Symptoms are improving gradually but she needs to stay longer for further stabilization. Supportive therapy was given. Medication Change: Yes Medical Record Reviewed: Yes Mental Status Examination - Cognitive Function Orientation: Person, Place, Situation, Time Memory: Intact Attention: WNL Concentration: Poor Association: WNL Fund of Knowledge: WNL - Mood Mood: Depressed, Anxious - Affect Affect: Constricted, Depressed - Speech Speech: Appropriate - Formal Thought Process Formal Thought Process: No Impairment - Suicidal Ideation Suicidal Ideation: No - Homicidal Ideation Homicidal Ideation: No Goal/Treatment Plan - Goal/Treatment Plan Need for Continued Stay: Severe depression anxiety, Discharge may exacerbated symptoms, Severe functional impairment Progress Toward Problem(s) and Goals/Treatment Plan: Bipolar disorder depressed severe without psychotic features Alcohol use disorder severe Alcohol withdrawal CBT Supportive therapy Psychoeducation Librium taper Neurontin for augmentation Trazodone for insomnia Hydroxyzine for anxiety Wellbutrin for depression
[2018-08-13] MEDS: QUEtiapine 50 mg XR Tab PO SCH (21:51)
[2018-08-14 05:58] VITALS: BP 100/64; PULSE 77; TEMP 97.4
[2018-08-14] MEDS: Multiple Vitamins Tab PO SCH (09:47)
[2018-08-14] MEDS: buPROPion 150 mg/24 Hours XL Tab PO SCH (09:47)
--- NOTE | 2018-08-14 10:43 | PCM.PYCHDC ---
Mental Status Examination - Mental Status Examination Orientation: Person, Place, Situation, Time Memory: Intact Mood: Neutral Affect: Constricted Speech: Soft Attention: WNL Concentration: WNL Association: WNL Fund of Knowledge: WNL Formal Thought Process: No Impairment Description of patient's judgement and insight: good, fair Psychotic Thoughts and Behaviors: denies any AVH Suicidal Ideation: No Current Homicidal Ideation?: No Discharge Summary - Discharge Note Reason for Hospitalization: Patient is a 41 years old female who over the hospital with depressed mood and suicidal ideation. Patient has a history of few inpatient psychiatric hospitalizations at [facility]. She was last discharged from [facility] more than a year ago. As per the patient she was following up with a psychiatrist and was taking medications, when she relapsed on drinking. As per the patient she stopped taking her medications and started drinking on a daily basis. She reports few stressors including her ex- who has a custody of the children. She also reports her job is hectic as well. She reports that she has been drinking more than 1 pint on a daily basis. Yesterday she consumed almost 1 pint of liquor, when she became increasingly depressed and developed suicidal ideation and so she came to the hospital. She reports depressed mood, feelings of hopelessness and helplessness. She also reports at times racing thoughts, irritability and agitation. She reports withdrawal symptoms from the drinking including shakes, anxiety, sweating, headaches, irritability and agitation. She denies any history of DTs and seizures in the past. She denies any other substance abuse. Consultations:: List each consultation separately and include: 1. Reason for request. 2. Findings. 3. Follow-up Summary of Hospital Course include:: 1. Description of specific treatment plan utilized for patients during their course of treatmen. 2. Summarize the time- course for resolution of acute symptoms and/or regressed behaviors. 3. Describe issues identified and worked on during hospitalization. 4. Describe medication utilized. 5. Describe medical problems identified and treated. 6. Reassessment of suicide risk Summary of Hospital Course: During the course of her stay, patient (pt) started progressively improving and no longer remained irritable, depressed, and suicidal. Her mood and anxiety were improved and she started attending groups and meetings and started socializing. Patient denied any feelings of hopelessness, helplessness, and worthlessness, denied any problem with the sleep or appetite, denied suicidal ideation or homicidal ideation. Pt denied any auditory or visual hallucinations. She denied any withdrawal symptoms. Pt was treated with medications along with supportive therapy, milieu therapy and group therapy. Some changes were made in her current medications and patient was discharged on following medications. She tolerated these medications very well and denied any side effects. - Final Diagnosis (DSM 5) Condition upon Discharge: GOOD DSM 5: Bipolar disorder depressed severe without psychotic features Alcohol use disorder severe Alcohol withdrawal Disposition: HOME/ ROUTINE Follow-up Treatment Plan: Followup: She was discharged to the [facility]/private psychiatrist. Education: Pt was educated and counseled about the risks and benefits of taking and not taking medications. Pt was educated and counseled about the risks of drinking and abusing drugs. Pt was educated and counseled to go to the ER or call 911 if pt develop suicidal ideation or homicidal ideation, worsening of symptoms or severe side effects of the meds. Prescriptions/Medication Reconciliation: buPROPion XL [Wellbutrin XL] 150 mg PO DAILY #30 t24 Gabapentin [Neurontin] 100 mg PO BID #60 cap QUEtiapine [Seroquel XR] 50 mg PO HS #30 ter traZODone [Desyrel] 50 mg PO HS PRN #30 tab PRN Reason: Insomnia - Smoking Cessation Smoking Cessation Medication prescribed: No - Antipsychotic Medications Pt discharged on 2 or more routine antipsychotic medications: No
== END 2018-08-14 11:15 | disposition home or self-care (01) | DRG 753 ==
LOC: C.ER 16:55 → C.5E 21:14
PROVIDERS: ADMIT Psychiatry & Neurology Psychiatry; ATTEND Psychiatry & Neurology Psychiatry
PROC: GZ3ZZZZ Medication Management (ICD-10-PCS; principal; 2018-08-08)
PROC: HZ88ZZZ Medication Management for Substance Abuse Treatment, Psychiatric Medication (ICD-10-PCS; 2018-08-08)
PROC: GZHZZZZ Group Psychotherapy (ICD-10-PCS; 2018-08-08)
PROC: GZ56ZZZ Individual Psychotherapy, Supportive (ICD-10-PCS; 2018-08-08)
DX: F31.4 Bipolar disorder, current episode depressed, severe, without psychotic features (principal); R45.851 Suicidal ideations; F10.239 Alcohol dependence with withdrawal, unspecified; F41.9 Anxiety disorder, unspecified; G47.00 Insomnia, unspecified; I10 Essential (primary) hypertension